=== PATIENT | female | born 1980 | race Caucasian/White ===

== ENCOUNTER 2018-10-20 11:43 | Emergency (ER) | payer OTHER ==
[~2018-10-20] VITALS: Ht 157.5 cm; Wt 60.3 kg
[2018-10-20 12:24] LABS: ABSOLUTE NEUTROPHILS 4.9 thou/uL (1.4-8.2); EOSINOPHILS 1.6 % (0.0-3.0); HEMOGLOBIN 13.4 gm/dL (12.0-15.0); LYMPHOCYTES 34.6 % (24.0-44.0); MCH 30.1 pg (26.0-34.0); MCHC 33.4 g/dL (28.0-37.0); MONOCYTES 6.2 % (1.0-8.0); PLATELET COUNT 346 thou/uL (150-400); POLYS 56.6 % (36.0-66.0); RBC 4.45 mil/uL (4.20-5.00); RDW 12.8 % (10.5-14.5); WBC 8.7 thou/uL (4.0-11.0)
[2018-10-20 12:36] LABS: ANION GAP 9 mmol/L (7-16); BUN 10 mg/dL (7-18); CALCIUM 8.9 mg/dL (8.5-10.1); CHLORIDE 108 mmol/L (98-107); CO2 23 mmol/L (21-32); CREATININE 0.7 mg/dL (0.6-1.0); GLUCOSE 94 mg/dL (74-106); POTASSIUM 3.4 mmol/L (3.5-5.1); SODIUM 140 mmol/L (136-145)
[2018-10-20 12:46] LABS: ALBUMIN 4.2 g/dL (3.4-5.0); MAGNESIUM 1.9 mg/dL (1.8-2.4); SGOT 11 U/L (15-37); SGPT 15 U/L (30-65); TOTAL BILIRUBIN 0.3 mg/dL (<0.1-1.0); TOTAL PROTEIN 7.6 g/dL (6.4-8.2); TROPONIN-I <0.06 ng/mL (<0.06)
[2018-10-20] MEDS ORDERED: NAPROXEN375 MG PO (14:55)
[2018-10-20] MEDS ORDERED: NORFLEX100 MG PO (14:55)
[2018-10-20] MEDS ORDERED: ATIVAN0.5 MG PO (14:55)
[2018-10-20] MEDS ORDERED: TRAMADOL 50 MG50 MG PO (15:01)
[2018-10-20 15:17] VITALS: BP 122/84
--- NOTE | 2018-10-21 07:49 | EKG ---
[address] [place] [address] ELECTROCARDIOGRAM REPORT Name: QASIM MICHELE Room #: DEP [facility]#: [id number] ������������������ Admission: 10/20/18 ������������������ Attend Phys: Discharge: 10/20/18 ������������������ Date of : 80 Report #: [id number] ����������������������������������������������������������������� [id number] THIS REPORT FOR: //name// [facility] ED Test Date: 2018-10-20 Test Time: 11:53:20 Pat Name: QASIM MICHELE Department: Room: Gender: F [place]: [place] : 1980 Requested By: Miguel Ángel Martel Order Number: [id number] MD: Faustino Regan Measurements Intervals [place] Rate: 102 P: 75 IN: 147 QRS: 40 QRSD: 94 T: 53 QT: 357 QTc: 466 Interpretive Statements Sinus tachycardia Otherwise normal tracing No previous ECG available for comparison Electronically Signed On 10-21-2018 7:49:21 CDT by Faustino Regan [email or web address] ��������������������������������������������� <ELECTRONICALLY SIGNED> ���������������������������������������� By: Faustino Regan MD, [facility] ��������������������������������������������� 10/21/18 0749 1153 1153 Faustino Regan MD, FACC /EPI
== END 2018-10-20 15:18 | disposition home or self-care (01) ==
LOC: ER 11:43
PROVIDERS: Emergency Medicine
DX: R07.89 Other chest pain (principal); M43.6 Torticollis; F41.9 Anxiety disorder, unspecified; Z87.891 Personal history of nicotine dependence; Z88.0 Allergy status to penicillin